=== PATIENT | male | born 1965 | race Caucasian/White ===

== ENCOUNTER 2023-07-29 08:23 | Outpatient (CLI) | payer OTHER ==
[2023-07-29] MEDS ORDERED: Magnevist 469MG/ML 20 ML VIAL ONE (10:49)
== END 2023-07-29 08:24 | disposition home or self-care (01) ==
LOC: CSHMRI 08:23
PROVIDERS: ATTEND Urology
DX: C61 Malignant neoplasm of prostate (principal); N40.2 Nodular prostate without lower urinary tract symptoms
CPT/HCPCS: 72197; A9579

== ENCOUNTER 2023-08-04 13:34 | Outpatient (CLI) | payer OTHER ==
[~2023-08-04 13:34] MED LIST: Iopamidol 300 61% 100 ML VIAL FS ONE
== END 2023-08-04 13:35 | disposition home or self-care (01) ==
LOC: CSHCT 13:34
PROVIDERS: ATTEND Urology
DX: C61 Malignant neoplasm of prostate (principal); R94.8 Abnormal results of function studies of other organs and systems; M89.8X8 Other specified disorders of bone, other site; E27.8 Other specified disorders of adrenal gland; K80.20 Calculus of gallbladder without cholecystitis without obstruction
CPT/HCPCS: 71260; Q9967